=== PATIENT | female | born 1995 | race African-American/Black ===

== ENCOUNTER 2017-03-13 20:10 | Emergency (ER) | payer SELFPAY ==
[2017-03-13 21:15] LABS: COLOR YELLOW; LEUKOCYTE ESTERASE,URINE TRACE (NEGATIVE); NITRITE,URINE NEGATIVE (NEGATIVE)
[2017-03-13] MEDS ORDERED: AZITHROMYCIN 250 MG TAB PO ONE (21:19)
--- NOTE | 2017-03-13 21:24 | EDPHY ---
H & P Stated Complaint: vaginal pain with bumps and discharge since Thursday Time Seen by Provider: 03/13/17 20:30 HPI/ROS: CHIEF COMPLAINT: vaginal sores HISTORY OF PRESENT ILLNESS: 21-year-old female presents emergency department complaining of vaginal sores and discharge x2 days. Patient had unprotected sex 4 days ago. She reports a history of Chlamydia 2 years ago which he was treated for. She is on Depo-Provera for control. Patient denies vaginal odor, no burning with urination, no urinary frequency or urgency. Patient denies pruritus, no nausea, vomiting or diarrhea, no fevers or chills, no body aches. REVIEW OF SYSTEMS: A comprehensive 10 point review of systems is otherwise negative aside from elements mentioned in the history of present illness. Source: Patient Exam Limitations: No limitations - Personal History LMP (Females 10-55): Extended Cycle BCP/Inj Current Tetanus/Diphtheria Vaccine: Unsure Current Tetanus Diphtheria and Acellular Pertussis (TDAP): Unsure Tetanus Vaccine Date: <10 years - Medical/Surgical History Hx Asthma: Yes Hx Chronic Respiratory Disease: No Hx Diabetes: No Hx Cardiac Disease: No Hx Renal Disease: No Hx Cirrhosis: No Hx Alcoholism: No Hx HIV/AIDS: No Hx Splenectomy or Spleen Trauma: No Other PMH: left arm fx. asthma - Social History Smoking Status: Current some day smoker - Physical Exam Exam: Physical Exam Gen: Alert and Oriented, NAD HEENT: PERRL, moist mucous membranes NECK: no meningismus CV: regular rate and regular rhythm PULM: CTAB, no wheezes ABDOMEN: soft, non tender to palpation, BS present :Pelvic exam: The vulva and both labia with lesions with surrounding erythema. The vagina did have moderate amount of yellow and white discharge. The cervix was closed no bleeding and no purulent drainage. The uterus was normal size and non tender. The adnexa had no masses and no tenderness. The exam was performed with a senior economist. BACK: No CVA tenderness NEURO: Neurologically grossly intact EXTREMITIES: normal appearing SKIN: no rash or break in skin on exposed skin PSYCH: answers questions appropriately. Constitutional: Initial Vital Signs Temperature (C) 37.0 C 03/13/17 20:12 Heart Rate 104 H 03/13/17 20:12 Respiratory Rate 16 03/13/17 20:12 Blood Pressure 128/76 H 03/13/17 20:12 O2 Sat (%) 94 03/13/17 20:12 O2 Delivery Mode Room Air Allergies/Adverse Reactions: codeine Allergy (Verified 03/13/17 20:16) Home Medications: Medication Instructions Recorded Acyclovir 400 mg PO TID #30 tablet 03/13/17 Medical Decision Making ED Course/Re-evaluation: Patient is treated for chlamydia and gonorrhea. She is given a prescription for acyclovir for her 1st herpes simplex virus outbreak. Pt with no evidence of PID. Negative test. Pt educated on STD's, prevention and using condoms. Differential Diagnosis: Diagnosis considered but not limited to herpes simplex virus, STD, , urinary tract infection - Data Points Laboratory Results: 03/13/17 03/13/17 03/13/17 21:15 20:40 20:40 Urine Color YELLOW Urine Appearance CLEAR Urine pH 5.0 (5.0-7.5) Ur Specific [place] 1.015 (1.002-1.030) Urine Protein 1+ H (NEGATIVE) Urine Ketones TRACE H (NEGATIVE) Urine Blood 1+ H (NEGATIVE) Urine Nitrate NEGATIVE (NEGATIVE) Urine Bilirubin NEGATIVE (NEGATIVE) Urine Urobilinogen NEGATIVE EU EU (0.2-1.0) Ur Leukocyte Esterase TRACE H (NEGATIVE) Urine RBC 3-5 /hpf H /hpf (0-3) Urine WBC NONE SEEN /hpf /hpf (0-3) Ur Epithelial Cells TRACE /lpf /lpf (NONE-1+) Urine Mucus 1+ /lpf /lpf (NONE-1+) Urine Glucose NEGATIVE (NEGATIVE) Urine Test Trichomonas (Wet Prep) NO TRICHOMONAS C.trachomatis RNA (TMA) Pending N.gonorrhoeae RNA (TMA) Pending 03/13/17 20:40 Urine Color Urine Appearance Urine pH Ur Specific [place] Urine Protein Urine Ketones Urine Blood Urine Nitrate Urine Bilirubin Urine Urobilinogen Ur Leukocyte Esterase Urine RBC Urine WBC Ur Epithelial Cells Urine Mucus Urine Glucose Urine Test NEGATIVE Trichomonas (Wet Prep) C.trachomatis RNA (TMA) N.gonorrhoeae RNA (TMA) Medications Given: Discontinued Medications Acyclovir (Zovirax 400 Mg Prepack #4) 1 btl TAKEHOME EDNOW ONE Stop: 03/13/17 21:36 Last Admin: 03/13/17 21:51 Dose: 1 btl Azithromycin (Zithromax) 1,000 mg PO EDNOW ONE PRN Reason: Protocol Stop: 03/13/17 21:20 Last Admin: 03/13/17 21:30 Dose: 1,000 mg Lidocaine (Lidocaine 2% Jelly) 1 elena TP EDNOW ONE Stop: 03/13/17 21:33 Last Admin: 03/13/17 21:50 Dose: 1 elena Departure - Departure Disposition: Home, Routine, Self-Care Clinical Impression: HSV (herpes simplex virus) anogenital infection Condition: Good Instructions: Acyclovir (By mouth), Genital Herpes Simplex (ED), Sexually Transmitted Diseases (ED), Condom Use (ED) Additional Instructions: Call the emergency department in 48 hours for your chlamydia and gonorrhea results. You were treated today for both chlamydia and gonorrhea. If your results are positive you need to tell your sexual partners so they can be treated. Start taking the acyclovir three times per day for 10 days for your herpes simplex virus. Avoid any sexual contact until you are symptom free. This is contagious even when you do not have symptoms, it is important to use condoms and to tell your sexual partners. Referrals: Rosangela Santillan MD [Medical Doctor] - As per Instructions (Primary care doctor on-call) Prescriptions: Acyclovir 400 mg PO TID #30 tablet
[2017-03-13 21:31] LABS: MUCUS 1+ /lpf (NONE-1+)
[2017-03-13] MEDS ORDERED: LIDOCAINE 2% JELLY 5 ML TUBE TP ONE (21:32)
[2017-03-13] MEDS ORDERED: ACYCLOVIR 400 MG PREPACK#4 BTL TAKEHOME ONE (21:35)
[2017-03-13 21:38] LABS: WBC,URINE NONE SEEN /hpf (0-3)
[2017-03-13 22:17] VITALS: BP 120/85; PULSE 91; RESP 20; TEMP 99.3; O2SAT 95
[2017-03-16 13:09] LABS: CHLAMYDIA AMPLIFICATION GENPRB NEGATIVE (NEGATIVE)
== END 2017-03-13 22:17 | disposition home or self-care (01) ==
DX: A60.9 Anogenital herpesviral infection, unspecified (principal); J45.909 Unspecified asthma, uncomplicated; F17.200 Nicotine dependence, unspecified, uncomplicated